=== PATIENT | female | born 1965 | race Asian ===

== ENCOUNTER 2022-12-31 06:21 | Day surgery (SDC) | payer OTHER ==
[2022-12-23 16:48] VITALS: BMI 36.6
[2022-12-31] MEDS ORDERED: CEFAZOLIN 2 GM in DEXTROSE 5%-WATER - 50 ML IVPB ONE (06:30)
[2022-12-31] MEDS ORDERED: MIDAZOLAM HCL 2 MG/2 ML SINGLE DOSE VIAL ONE ×2 (06:56→08:06)
[2022-12-31] MEDS ORDERED: BUPIVACAINE HCL 50 ML ONE (06:59)
[2022-12-31] MEDS ORDERED: VANCOMYCIN 1 GM in D5W (PRE-DOCKED) 1,000 MG/250 ML IVPB ONE (07:00)
[2022-12-31] MEDS ORDERED: BUPIVACAINE HCL/PF 0.5% (5 MG/ML) 30 ML VIAL IJ ONE (07:00)
[2022-12-31] MEDS ORDERED: BUPIVACAINE LIPOSOME/PF (EXPAREL) 266 MG/20 ML VIAL ONE (07:00)
[2022-12-31] MEDS ORDERED: VANCOMYCIN 1,000 MG VIAL (RESTRICTED TO ID ONLY) ONE ×2 (07:57→08:37)
[2022-12-31] MEDS ORDERED: TRANEXAMIC ACID 1000 MG/10 ML VIAL IVPUSH ONE (08:00)
[2022-12-31] MEDS ORDERED: ePHEDrine SULFATE 50 MG/1 ML AMPULE ONE (08:01)
[2022-12-31] MEDS ORDERED: TRANEXAMIC ACID 1000 MG/10 ML VIAL ONE ×2 (08:37→09:31)
[2022-12-31] MEDS ORDERED: ONDANSETRON 4 MG/2 ML VIAL ONE (08:37)
[2022-12-31] MEDS ORDERED: ceFAZolin SODIUM 1 GM VIAL ONE (08:37)
[2022-12-31] MEDS ORDERED: PHENYLEPHRINE HCL 10 MG/1 ML SINGLE DOSE VIAL ONE (08:37)
[2022-12-31] MEDS ORDERED: KETOROLAC TROMETHAMINE 30 MG/1 ML VIAL ONE (08:37)
[2022-12-31] MEDS ORDERED: DEXAMETHASONE SOD PHOSPHATE 4 MG/1 ML VIAL ONE (08:37)
[2022-12-31] MEDS ORDERED: GLYCOPYRROLATE 0.2 MG/1 ML VIAL ONE (08:37)
[2022-12-31] MEDS ORDERED: PROPOFOL 20 ML ONE (08:58)
[2022-12-31] MEDS ORDERED: BUPIVICAINE 0.25%/MORPH PF/KETOROLAC - 51ML DISP.SYRINGE IA ONE ×2 (09:26→09:59)
[2022-12-31] MEDS ORDERED: VANCOMYCIN 1,000 MG VIAL (RESTRICTED TO ID ONLY) IVPB ONE (09:42)
[2022-12-31] MEDS ORDERED: MAG HYDROX/AL HYDROX/SIMETH 30 ML UNIT-DOSE CUP PO PRN (11:12)
[2022-12-31] MEDS ORDERED: LACTATED RINGERS SOLUTION 1,000 ML IV SCH ×2 (11:15→11:45)
[2022-12-31] MEDS ORDERED: ONDANSETRON 4 MG/2 ML VIAL IVPUSH PRN (11:35)
[2022-12-31] MEDS ORDERED: oxyCODONE HCL 5 MG TABLET PO PRN (11:35)
[2022-12-31] MEDS: ACETAMINOPHEN 1000 MG/100 ML BAG IVPB ONE ×2 (11:50→12:53)
[2022-12-31] MEDS ORDERED: ACETAMINOPHEN INJECTION 100 ML IVPB ONE (11:53)
[2022-12-31] MEDS: KETOROLAC TROMETHAMINE 30 MG/1 ML VIAL IVPUSH SCH ×2 (12:55→18:56)
[2022-12-31] MEDS: CEFAZOLIN SODIUM 2 GM in DEXTROSE 5%-WATER 100 ML IVPB SCH ×2 (16:58→23:08)
[2022-12-31] MEDS: INSULIN SLIDING SCALE (NOVOLOG) 1 VIAL SQ SCH ×2 (17:03→23:08)
[2022-12-31] MEDS: ACETAMINOPHEN 500 MG TABLET (FP) PO SCH ×2 (18:56→23:08)
[2022-12-31] MEDS: GABAPENTIN 300 MG CAPSULE PO SCH (21:18)
[2022-12-31] MEDS: METOPROLOL TARTRATE 50 MG TABLET (FP) PO SCH (21:18)
[2022-12-31] MEDS: oxyCODONE HCL 10 MG SUSTAINED ACTING TABLET PO SCH (21:18)
[2022-12-31] MEDS: SENNOSIDES/DOCUSATE COMBO (SENNA PLUS) TABLET (UD) PO SCH (21:20)
[2022-12-31] MEDS: oxyCODONE HCL 5 MG TABLET PO PRN (21:20)
[2022-12-31] MEDS ORDERED: ATORVASTATIN CA 10 MG TABLET (FP) PO SCH (22:00)
[2022-12-31] MEDS ORDERED: SPIRONOLACTONE 25 MG TABLET PO SCH (22:00)
[2023-01-01 01:27] VITALS: RESP 18
[2023-01-01] MEDS: ONDANSETRON 4 MG/2 ML VIAL IVPUSH PRN ×2 (04:58→09:15)
[2023-01-01] MEDS: ACETAMINOPHEN 500 MG TABLET (FP) PO SCH ×2 (06:16→12:33)
[2023-01-01] MEDS: INSULIN SLIDING SCALE (NOVOLOG) 1 VIAL SQ SCH ×3 (06:17→17:02)
[2023-01-01 07:59] LABS: CALCIUM 8.7 mg/dl (8.5-10); CREATININE 0.7 mg/dl (0.55-1.3)
[2023-01-01 08:03] LABS: HEMATOCRIT 31.4 % (32.4-45.2); HEMOGLOBIN 10.6 G/dL (10.7-15.3); MCH 26.8 pg (25.7-33.7); MCHC 33.8 g/dl (32.0-36.0); MEAN CELL VOLUME 79.4 fl (80-96); MEAN PLT VOLUME 11.5 fl (7.5-11.1); PLATELET COUNT 177.7 10^3/uL (134-434); RBC 3.95 10^6/uL (3.60-5.2); RDW 14.4 % (11.6-15.6); WHITE BLOOD COUNT 7.5 10^3/uL (4.0-10.8)
[2023-01-01] MEDS: CEFAZOLIN SODIUM 2 GM in DEXTROSE 5%-WATER 100 ML IVPB SCH (08:24)
[2023-01-01] MEDS: GABAPENTIN 300 MG CAPSULE PO SCH (09:15)
[2023-01-01] MEDS: METOPROLOL TARTRATE 50 MG TABLET (FP) PO SCH (09:16)
[2023-01-01] MEDS: SENNOSIDES/DOCUSATE COMBO (SENNA PLUS) TABLET (UD) PO SCH (09:16)
[2023-01-01] MEDS: oxyCODONE HCL 10 MG SUSTAINED ACTING TABLET PO SCH (09:16)
[2023-01-01] MEDS ORDERED: ASPIRIN 325 MG TABLET PO SCH (10:00)
[2023-01-01] MEDS ORDERED: PANTOPRAZOLE 40 MG TABLET PO SCH (10:00)
[2023-01-01] MEDS ORDERED: MULTIVITAMINS (DAILY MVI) TABLET (FP) PO SCH (10:00)
[2023-01-01 14:12] VITALS: BP 109/49; PULSE 62; TEMP 98.2
[2023-01-01] MEDS: oxyCODONE HCL 5 MG TABLET PO PRN (14:30)
== END 2023-01-01 17:44 | disposition home or self-care (01) ==
LOC: SUATTDRO 06:21 → FASUSAT 06:21 → FM/S 12:36 → FASUSAT 01-01 17:44
PROVIDERS: ATTEND Nurse Practitioner Family
PROC: 8E0Y0CZ Robotic Assisted Procedure of Lower Extremity, Open Approach (ICD-10-PCS; 2022-12-31)
PROC: 0SRC0J9 Replacement of Right Knee Joint with Synthetic Substitute, Cemented, Open Approach (ICD-10-PCS; principal; 2022-12-31 08:21)
DX: M17.11 Unilateral primary osteoarthritis, right knee (principal)
CPT/HCPCS: 20985; 27447; C1776; S2900; 36415; 73560-TC-RT-FY; 80048; 82962; 84132; 85027; 88305-TC; 88311-TC; 94760; 97010-GP; 97116-GP; 97162-GP; C1889

== ENCOUNTER 2023-04-28 06:10 | Day surgery (SDC) | payer OTHER ==
[2023-04-24 11:26] VITALS: BMI 34.4
[2023-04-28] MEDS ORDERED: PROPOFOL 20 ML ONE ×2 (07:23→07:48)
[2023-04-28] MEDS ORDERED: MIDAZOLAM HCL 2 MG/2 ML SINGLE DOSE VIAL ONE (07:24)
[2023-04-28] MEDS ORDERED: ONDANSETRON 4 MG/2 ML VIAL IVPUSH PRN (07:57)
[2023-04-28] MEDS ORDERED: ACETAMINOPHEN 500 MG TABLET (FP) PO PRN (07:57)
[2023-04-28] MEDS ORDERED: PROMETHAZINE HCL 25 MG/1 ML VIAL IVPB PRN (07:57)
[2023-04-28] MEDS ORDERED: oxyCODONE HCL 5 MG TABLET PO PRN (07:57)
[2023-04-28] MEDS ORDERED: ONDANSETRON 4 MG/2 ML VIAL ONE (08:00)
[2023-04-28] MEDS ORDERED: LACTATED RINGERS SOLUTION 1,000 ML IV SCH (08:00)
[2023-04-28] MEDS ORDERED: FENTANYL CITRATE/PF 50 MCG/ML VIAL ONE ×2 (08:00→08:30)
[2023-04-28] MEDS ORDERED: ACETAMINOPHEN INJECTION 100 ML IVPB ONE (08:05)
[2023-04-28] MEDS ORDERED: oxyCODONE HCL 5 MG TABLET ONE (09:02)
[2023-04-28 11:54] VITALS: TEMP 97
[2023-04-28 12:12] VITALS: BP 141/79; PULSE 57; RESP 17
== END 2023-04-28 10:30 | disposition home or self-care (01) ==
LOC: FASU 06:10
PROVIDERS: ATTEND Orthopaedic Surgery Sports Medicine
PROC: 0SSCXZZ Reposition Right Knee Joint, External Approach (ICD-10-PCS; principal; 2023-04-28 07:39)
DX: M24.661 Ankylosis, right knee (principal)
CPT/HCPCS: 82962; 94760